=== PATIENT | female | born 1935 | race Caucasian/White ===

== ENCOUNTER 2017-08-13 15:58 | Observation (INO) | payer MEDICARE, BC ==
[~2017-08-13] VITALS: Ht 165.1 cm; Wt 88.5 kg
[~2017-08-13 15:58] MED LIST: ATOR20TA66 PO; CALC1TAB33 PO; DICL18CA PO; DULO60CA45 PO; GABA-530 PO; HYDR-3965 PO; LACT1CAP57 PO; LISI-600 PO; OMEG1CAP54 PO; [UNRECOGNIZED DRUG - OTHER] PO
[2017-08-13 16:49] LABS: BASOPHILS % (AUTO) 0.3 % (0-1); EOSINOPHILS # (AUTO) 0.1 X10'3 (0-0.9); HEMOGLOBIN 12.8 g/dl (12.0-16.0); LYMPHOCYTES # (AUTO) 2.1 X10'3 (1.1-4.8); LYMPHOCYTES % (AUTO) 17.4 % (21-51); MEAN CORPUSCULAR HEMOGLOBIN 31.8 PG (27.0-31.0); MEAN CORPUSCULAR HGB CONC 34.6 % (33.0-36.5); MEAN CORPUSCULAR VOLUME 92.1 FL (78-98); MEAN PLATELET VOLUME 7.3 FL (7.4-10.4); MONOCYTES # (AUTO) 0.8 X10'3 (0-0.9); MONOCYTES % (AUTO) 6.3 % (2-12); PLATELET COUNT 244 X10'3 (140-440); RED BLOOD COUNT 4.01 X10'6 (4.20-5.60); RED CELL DISTRIBUTION WIDTH 14.3 % (11.5-14.5); WHITE BLOOD COUNT 12.1 X10'3 (4.5-11.0)
[2017-08-13 17:11] LABS: ALANINE AMINOTRANSFERASE 24 U/L (12-78); ALBUMIN 3.3 G/DL (3.4-5.0); ALBUMIN/GLOBULIN RATIO 0.9 (1.1-1.5); ALKALINE PHOSPHATASE 89 IU/L (46-116); ANION GAP 14 (8-16); ASPARTATE AMINO TRANSFERASE 19 U/L (10-37); BILIRUBIN,TOTAL 0.4 MG/DL (0.1-1.0); BLOOD UREA NITROGEN 47 MG/DL (7-18); BUN/CREATININE RATIO 24.7 (6.6-38.0); CHLORIDE 96 MMOL/L (99-107); GLUCOSE 98 MG/DL (70-104); POTASSIUM 3.9 MMOL/L (3.5-5.1); SODIUM 134 MMOL/L (135-145); TOTAL CARBON DIOXIDE 23.7 MMOL/L (24-32); TOTAL PROTEIN 6.8 G/DL (6.4-8.2); eGFR 25 ML/MIN
[2017-08-13 18:14] LABS: CLARITY,URINE SLIGHTLY CLOUDY (Clear); COLOR,URINE YELLOW (Yellow); GLUCOSE, URINE NEGATIVE (Neg); KETONES,URINE NEGATIVE (Neg); LEUKOCYTE ESTERASE ,URINE SMALL (Neg); NITRITES, URINE NEGATIVE (Neg); OCCULT BLOOD,URINE NEGATIVE (Neg); PROTEIN,URINE NEGATIVE (Neg); UROBILINOGEN,URINE 0.2 E.U/dL (0.2-1.0)
[2017-08-13 18:19] LABS: UA COLLECTION TYPE CLN CATCH MIDSTREAM
[2017-08-13] MEDS ORDERED: acetaminophen 325mg tablet PO ONE (18:25)
[2017-08-13 18:29] LABS: MUCUS STRANDS MANY /LPF (Neg); SQUAMOUS EPITHELIAL CELL,UR FEW /LPF (FEW); TRANSITIONAL EPI CELLS,URINE FEW /HPF
[2017-08-13 18:30] LABS: COARSE GRANULAR CAST 0-3 /LPF (NEGATIVE)
[2017-08-13 18:31] LABS: BACTERIA,URINE FEW /HPF (Neg); RBC,URINE 0-2 /HPF (0-2); WBC,URINE 0-4 /HPF (0-4)
[2017-08-13] MEDS ORDERED: normal saline 1000ML IV soln IVB ONE (18:40)
[2017-08-13] MEDS ORDERED: PROP40TA72 PO (20:03)
[2017-08-13] MEDS ORDERED: DICLOFENAC 1% GEL TOP (20:03)
[2017-08-13] MEDS ORDERED: PRIMADONE (20:03)
[2017-08-13] MEDS ORDERED: DICL18CA PO (20:04)
[2017-08-13] MEDS ORDERED: acetaminophen 325mg tablet PO PRN (20:55)
[2017-08-13] MEDS ORDERED: magnesium hydroxide 30ml (MOM) UD suspension PO PRN (20:55)
[2017-08-13] MEDS ORDERED: mag hydrox/Alum hydrox/simeth 30ml oral suspension PO PRN (20:55)
[2017-08-13] MEDS ORDERED: ondansetron/PF 4mg/2ml inj IV PRN (20:55)
[2017-08-13 23:00] VITALS: BP 142/61
[2017-08-13 23:07] VITALS: BP_SYST 124; BP_SYST 131; BP_SYST 142; BP_DIAS 49; BP_DIAS 55; BP_DIAS 61
[2017-08-14] MEDS: lisinopril 20mg tablet PO SCH ×3 (00:08→20:53)
[2017-08-14] MEDS: normal saline 1000ml 1,000 ML IV SCH ×3 (00:09→20:41)
[2017-08-14 03:37] VITALS: BP 134/58
[2017-08-14 05:44] LABS: BASOPHILS % (AUTO) 0.4 % (0-1); EOSINOPHILS # (AUTO) 0.1 X10'3 (0-0.9); EOSINOPHILS % (AUTO) 1.6 % (0-6); LYMPHOCYTES # (AUTO) 1.9 X10'3 (1.1-4.8); LYMPHOCYTES % (AUTO) 23.6 % (21-51); MEAN CORPUSCULAR HGB CONC 34.2 % (33.0-36.5); MEAN CORPUSCULAR VOLUME 93.6 FL (78-98); MEAN PLATELET VOLUME 7.5 FL (7.4-10.4); MONOCYTES # (AUTO) 0.5 X10'3 (0-0.9); MONOCYTES % (AUTO) 6.3 % (2-12); NEUTROPHILS # (AUTO) 5.6 X10'3 (1.8-7.7); NEUTROPHILS % (AUTO) 68.1 % (42-75); PLATELET COUNT 186 X10'3 (140-440); RED BLOOD COUNT 3.42 X10'6 (4.20-5.60); RED CELL DISTRIBUTION WIDTH 13.7 % (11.5-14.5); WHITE BLOOD COUNT 8.2 X10'3 (4.5-11.0)
[2017-08-14 06:56] LABS: ALANINE AMINOTRANSFERASE 24 U/L (12-78); ALBUMIN 2.7 G/DL (3.4-5.0); ALBUMIN/GLOBULIN RATIO 0.9 (1.1-1.5); ALKALINE PHOSPHATASE 73 IU/L (46-116); ANION GAP 9 (8-16); ASPARTATE AMINO TRANSFERASE 17 U/L (10-37); BILIRUBIN,TOTAL 0.2 MG/DL (0.1-1.0); BLOOD UREA NITROGEN 43 MG/DL (7-18); BUN/CREATININE RATIO 31.4 (6.6-38.0); CALCIUM 8.8 MG/DL (8.5-10.1); CHLORIDE 103 MMOL/L (99-107); CREATININE 1.37 MG/DL (0.40-0.90); GLUCOSE 106 MG/DL (70-104); SODIUM 137 MMOL/L (135-145); TOTAL CARBON DIOXIDE 25.2 MMOL/L (24-32); TOTAL PROTEIN 5.7 G/DL (6.4-8.2); eGFR 37 ML/MIN
[2017-08-14 07:06] VITALS: BP 120/65
[2017-08-14] MEDS: heparin, porcine 5000 units/ml vial SQ SCH ×2 (07:28→20:54)
[2017-08-14] MEDS: beta-carotene(A) w/C & E + minerals tab PO SCH ×2 (07:29→20:53)
[2017-08-14] MEDS: lactobacillus rhamnosus 10,000 MMU CELLS/CAPSULE PO SCH ×2 (07:29→20:51)
[2017-08-14] MEDS: atorvastatin 20mg tablet PO SCH ×2 (07:29→20:52)
[2017-08-14] MEDS: duloxetine 30mg CAPSULE.DR PO SCH (07:29)
[2017-08-14] MEDS ORDERED: propranolol 40mg tablet PO SCH ×2 (08:00→21:30)
[2017-08-14] MEDS ORDERED: lisinopril 20mg tablet PO SCH (08:00)
[2017-08-14] MEDS: pantoprazole 40mg Tablet.DR PO SCH (10:42)
[2017-08-14] MEDS: propranolol 10mg tablet PO SCH ×2 (10:47→20:52)
[2017-08-14 11:00] VITALS: BP 132/66
[2017-08-14 11:22] VITALS: BP_SYST 132; BP_SYST 133; BP_SYST 149; BP_DIAS 66; BP_DIAS 69
[2017-08-14 20:00] VITALS: BP_SYST 112; BP_SYST 124; BP_SYST 130; BP_DIAS 47; BP_DIAS 53; BP_DIAS 70
[2017-08-14] MEDS ORDERED: gabapentin 100mg capsule PO SCH (21:00)
[2017-08-14 23:30] VITALS: BP 119/71
[2017-08-15] MEDS ORDERED: propranolol 40mg tablet PO SCH (00:30)
[2017-08-15 06:14] LABS: ALANINE AMINOTRANSFERASE 20 U/L (12-78); ALBUMIN 2.7 G/DL (3.4-5.0); ALKALINE PHOSPHATASE 68 IU/L (46-116); ANION GAP 10 (8-16); ASPARTATE AMINO TRANSFERASE 14 U/L (10-37); BILIRUBIN,TOTAL 0.2 MG/DL (0.1-1.0); BLOOD UREA NITROGEN 34 MG/DL (7-18); BUN/CREATININE RATIO 32.1 (6.6-38.0); CALCIUM 8.9 MG/DL (8.5-10.1); CHLORIDE 105 MMOL/L (99-107); CREATININE 1.06 MG/DL (0.40-0.90); GLUCOSE 102 MG/DL (70-104); POTASSIUM 4.1 MMOL/L (3.5-5.1); SODIUM 138 MMOL/L (135-145); TOTAL CARBON DIOXIDE 23.5 MMOL/L (24-32); TOTAL PROTEIN 5.5 G/DL (6.4-8.2); eGFR 50 ML/MIN
[2017-08-15 07:13] VITALS: BP 145/69
[2017-08-15] MEDS: propranolol 10mg tablet PO SCH (08:20)
[2017-08-15] MEDS: pantoprazole 40mg Tablet.DR PO SCH (08:20)
[2017-08-15] MEDS: heparin, porcine 5000 units/ml vial SQ SCH (08:20)
[2017-08-15] MEDS: lactobacillus rhamnosus 10,000 MMU CELLS/CAPSULE PO SCH (08:20)
[2017-08-15] MEDS: atorvastatin 20mg tablet PO SCH (08:20)
[2017-08-15] MEDS: beta-carotene(A) w/C & E + minerals tab PO SCH (08:20)
[2017-08-15] MEDS: lisinopril 20mg tablet PO SCH (08:20)
[2017-08-15] MEDS: duloxetine 30mg CAPSULE.DR PO SCH (08:20)
[2017-08-15] MEDS ORDERED: PANT40TA4 PO (11:26)
[2017-08-15 11:33] VITALS: BP 105/59
== END 2017-08-15 16:00 | disposition home health service (06) ==
LOC: ER 15:58 → ED HOLD 20:53 → SUR 3N 22:36
PROVIDERS: ADMIT Internal Medicine; ATTEND Internal Medicine
DX: E86.0 Dehydration (principal); N17.9 Acute kidney failure, unspecified; R25.1 Tremor, unspecified; R11.10 Vomiting, unspecified; R19.7 Diarrhea, unspecified; E78.00 Pure hypercholesterolemia, unspecified; I10 Essential (primary) hypertension; I48.91 Unspecified atrial fibrillation; M19.90 Unspecified osteoarthritis, unspecified site; G89.29 Other chronic pain; Z91.81 History of falling; Z90.49 Acquired absence of other specified parts of digestive tract
CPT/HCPCS: 36415; 71046; 80053; 81001; 84484; 85025; 87070; 96360; 96361; 96372; 97116; 97162; 97530; 99285; G0378; J1644; J7030

== ENCOUNTER 2018-07-01 18:25 | Inpatient (IN) | payer MEDICARE, BC | END 2018-07-06 13:40 | disposition home or self-care (01) | LOC: ORTHO 4S 07-05 13:02 → ER 18:25 → ORTHO 4S 07-02 00:55 | DX: L02.413 Cutaneous abscess of right upper limb (principal); N39.0 Urinary tract infection, site not specified; N17.9 Acute kidney failure, unspecified ==

== ENCOUNTER 2019-10-31 05:15 | Emergency (ER) | payer MEDICARE, BC ==
[~2019-10-31] VITALS: Ht 167.6 cm; Wt 84.1 kg
[~2019-10-31 05:15] MED LIST changes: -ATOR20TA66 PO; +BACDS PO; +CALC-1215 PO; -CALC1TAB33 PO; +CARB30DR12; -DICL18CA PO; +DICL1KIT14 TOP; +DULO-31 PO; -DULO60CA45 PO; +FISH12002 PO; -HYDR-3965 PO; +HYDR-4383 PO; -LACT1CAP57 PO; -LISI-600 PO; -OMEG1CAP54 PO; +PROP40TA72 PO; -[UNRECOGNIZED DRUG - OTHER] PO
[2019-10-31] MEDS ORDERED: metoprolol tartrate 50mg tablet PO ONE (05:35)
[2019-10-31] MEDS ORDERED: GABA-530 PO (05:36)
[2019-10-31] MEDS ORDERED: PROP40TA72 PO (05:36)
[2019-10-31 06:37] VITALS: BP 122/77
[2019-10-31] MEDS ORDERED: ondansetron 4mg rapidly disintigrating tab PO ONE (06:40)
== END 2019-10-31 07:03 | disposition home or self-care (01) ==
LOC: ER 05:15
DX: I10 Essential (primary) hypertension (principal); R11.0 Nausea; I48.91 Unspecified atrial fibrillation; E78.00 Pure hypercholesterolemia, unspecified; M19.90 Unspecified osteoarthritis, unspecified site; G89.29 Other chronic pain; Z90.49 Acquired absence of other specified parts of digestive tract; Z98.890 Other specified postprocedural states; Z60.2 Problems related to living alone; Z88.0 Allergy status to penicillin; Z79.2 Long term (current) use of antibiotics; Z79.899 Other long term (current) drug therapy
CPT/HCPCS: 99283

== ENCOUNTER 2020-01-12 07:10 | Emergency (ER) | payer MEDICARE, BC ==
[~2020-01-12] VITALS: Ht 165.1 cm; Wt 86.4 kg
[2020-01-12] MEDS ORDERED: morphine 4 MG/ML inj SYRINge IM ONE ×2 (07:35→08:35)
[2020-01-12 10:02] VITALS: BP 164/78
== END 2020-01-12 10:00 | disposition home or self-care (01) ==
LOC: ER 07:10
DX: M54.31 Sciatica, right side (principal); I48.91 Unspecified atrial fibrillation; E78.00 Pure hypercholesterolemia, unspecified; I10 Essential (primary) hypertension; M19.90 Unspecified osteoarthritis, unspecified site; G89.29 Other chronic pain; Z90.49 Acquired absence of other specified parts of digestive tract; Z98.890 Other specified postprocedural states; Z60.2 Problems related to living alone; Z88.0 Allergy status to penicillin; Z79.2 Long term (current) use of antibiotics; Z88.8 Allergy status to other drugs, medicaments and biological substances; Z79.899 Other long term (current) drug therapy
CPT/HCPCS: 72100; 96372; 99284; J2270

== ENCOUNTER 2021-02-17 18:55 | Emergency (ER) | payer MEDICARE, BC ==
[~2021-02-17] VITALS: Ht 165.1 cm; Wt 86.4 kg
[~2021-02-17 18:55] MED LIST changes: -BACDS PO; +SULF1TAB45 PO
[2021-02-17 19:37] VITALS: BP 202/96
[2021-02-17] MEDS ORDERED: HYDROcodone/acetaminophen 5mg/325mg tablet PO ONE (20:35)
== END 2021-02-17 21:45 | disposition home or self-care (01) ==
LOC: ER 18:55
DX: S01.111A Laceration without foreign body of right eyelid and periocular area, initial encounter (principal); S20.211A Contusion of right front wall of thorax, initial encounter; S80.02XA Contusion of left knee, initial encounter; S63.502A Unspecified sprain of left wrist, initial encounter; H57.89 Other specified disorders of eye and adnexa; I48.91 Unspecified atrial fibrillation; E78.00 Pure hypercholesterolemia, unspecified; I10 Essential (primary) hypertension; M19.90 Unspecified osteoarthritis, unspecified site; G89.29 Other chronic pain; Z90.89 Acquired absence of other organs; Z98.890 Other specified postprocedural states; Z60.2 Problems related to living alone; Z88.0 Allergy status to penicillin; Z88.1 Allergy status to other antibiotic agents; Z88.8 Allergy status to other drugs, medicaments and biological substances; Z79.2 Long term (current) use of antibiotics; Z79.899 Other long term (current) drug therapy; W18.30XA Fall on same level, unspecified, initial encounter; Y93.89 Activity, other specified; Y92.89 Other specified places as the place of occurrence of the external cause; Y99.8 Other external cause status
CPT/HCPCS: 12011; 70450; 70486; 72125; 73110; 73564; 99285

== ENCOUNTER 2021-09-06 01:37 | Emergency (ER) | payer MEDICARE, BC ==
[~2021-09-06] VITALS: Ht 165.1 cm; Wt 86.4 kg
[2021-09-06 02:32] VITALS: BP 138/55
[2021-09-06] MEDS ORDERED: acetaminophen 325mg tablet PO ONE (02:35)
== END 2021-09-06 03:25 | disposition home or self-care (01) ==
LOC: ER 01:38
DX: S40.012A Contusion of left shoulder, initial encounter (principal); S80.02XA Contusion of left knee, initial encounter; W18.39XA Other fall on same level, initial encounter; Y93.89 Activity, other specified; Y92.89 Other specified places as the place of occurrence of the external cause; Y99.8 Other external cause status
CPT/HCPCS: 73030; 73564; 99284

== ENCOUNTER 2021-10-10 06:13 | Emergency (ER) | payer MEDICARE, BC ==
[~2021-10-10] VITALS: Ht 165.1 cm; Wt 86.0 kg
[2021-10-10] MEDS ORDERED: celeCOXIB 100mg capsule PO ONE (07:10)
[2021-10-10] MEDS ORDERED: celeCOXIB 100mg capsule PO SCH (07:10)
--- NOTE | 2021-10-10 07:49 | NUR ---
Currently awaiting ordered Celebrex to arriv to unit from pharmacy.
--- NOTE | 2021-10-10 08:45 | NUR ---
Patient assisted to bedside commode. Patient was able to void urine
[2021-10-10] MEDS ORDERED: CELE-193 PO (09:08)
--- NOTE | 2021-10-10 09:40 | NUR ---
RN contacted patients madeline Mitchell via phone. 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
[2021-10-10 10:10] VITALS: BP 135/69
== END 2021-10-10 10:56 | disposition home or self-care (01) ==
LOC: ER 06:13
DX: S80.02XA Contusion of left knee, initial encounter (principal); S80.01XA Contusion of right knee, initial encounter; I48.91 Unspecified atrial fibrillation; E78.00 Pure hypercholesterolemia, unspecified; I10 Essential (primary) hypertension; M19.90 Unspecified osteoarthritis, unspecified site; G89.29 Other chronic pain; Z90.89 Acquired absence of other organs; Z72.89 Other problems related to lifestyle; Z88.8 Allergy status to other drugs, medicaments and biological substances; Z88.0 Allergy status to penicillin; Z88.1 Allergy status to other antibiotic agents; Z79.899 Other long term (current) drug therapy; Z60.2 Problems related to living alone; W01.0XXA Fall on same level from slipping, tripping and stumbling without subsequent striking against object, initial encounter; Y93.89 Activity, other specified; Y92.89 Other specified places as the place of occurrence of the external cause; Y99.8 Other external cause status
CPT/HCPCS: 99283

== ENCOUNTER 2023-02-17 13:36 | Emergency (ER) | payer MEDICARE, BC ==
[~2023-02-17] VITALS: Ht 165.1 cm; Wt 84.1 kg
[~2023-02-17 13:36] MED LIST changes: +AMLO2.5T5 PO; +ATOR40TA72 PO; -DICL1KIT14 TOP; +DICL50TA6 PO; -FISH12002 PO; +LISI20TA28 PO; +PANT40TA54 PO; -SULF1TAB45 PO; +TOPI25TA49 PO
[2023-02-17 14:47] LABS: BASOPHILS # (AUTO) 0.1 X10'3 (0-0.2); BASOPHILS % (AUTO) 0.9 % (0-1); EOSINOPHILS # (AUTO) 0.2 X10'3 (0-0.9); EOSINOPHILS % (AUTO) 3.1 % (0-6); HEMATOCRIT 32.7 % (35.0-45.0); HEMOGLOBIN 10.5 g/dl (12.0-16.0); LYMPHOCYTES # (AUTO) 1.1 X10'3 (1.1-4.8); LYMPHOCYTES % (AUTO) 16.2 % (21-51); MEAN CORPUSCULAR HEMOGLOBIN 29.5 PG (27.0-31.0); MEAN CORPUSCULAR HGB CONC 32.1 g/dL (33.0-36.5); MEAN PLATELET VOLUME 7.8 FL (7.4-10.4); MONOCYTES # (AUTO) 0.6 X10'3 (0-0.9); MONOCYTES % (AUTO) 9.1 % (2-12); NEUTROPHILS # (AUTO) 4.7 X10'3 (1.8-7.7); NEUTROPHILS % (AUTO) 70.7 % (42-75); PLATELET COUNT 212 X10'3 (140-440); RED BLOOD COUNT 3.56 X10'6 (4.20-5.60); RED CELL DISTRIBUTION WIDTH 15.3 % (11.5-14.5); WHITE BLOOD COUNT 6.6 X10'3 (4.5-11.0)
[2023-02-17 15:08] LABS: ALANINE AMINOTRANSFERASE 20 U/L (12-78); ALBUMIN 3.5 G/DL (3.4-5.0); ALKALINE PHOSPHATASE 55 IU/L (46-116); ANION GAP 12 (8-16); ASPARTATE AMINO TRANSFERASE 20 U/L (10-37); BILIRUBIN,TOTAL 0.3 MG/DL (0.1-1.0); BLOOD UREA NITROGEN 62 MG/DL (7-18); BUN/CREATININE RATIO 33.7 (10.0-20.0); CALCIUM 9.3 MG/DL (8.5-10.1); CHLORIDE 106 MMOL/L (99-107); CREATININE 1.84 MG/DL (0.40-0.90); GLUCOSE 111 MG/DL (70-104); LIPASE 68 U/L (16-77); POTASSIUM 5.1 MMOL/L (3.5-5.1); SODIUM 140 MMOL/L (135-145); TOTAL CARBON DIOXIDE 22.3 MMOL/L (24-32); TOTAL PROTEIN 6.9 G/DL (6.4-8.2); eCRCL 1 ML/MIN; eGFR 26 ML/MIN
[2023-02-17] MEDS ORDERED: acetaminophen 325mg tablet PO ONE (16:25)
[2023-02-17 16:41] LABS: BILIRUBIN,URINE NEGATIVE (Neg); CLARITY,URINE CLEAR (Clear); COLOR,URINE YELLOW (Yellow); GLUCOSE, URINE NEGATIVE (Neg); KETONES,URINE NEGATIVE (Neg); LEUKOCYTE ESTERASE ,URINE NEGATIVE (Neg); NITRITES, URINE NEGATIVE (Neg); OCCULT BLOOD,URINE NEGATIVE (Neg); PH,URINE 5.5 (4.8-8.0); PROTEIN,URINE NEGATIVE (Neg); UROBILINOGEN,URINE 0.2 E.U/dL (0.2-1.0)
[2023-02-17 16:46] LABS: UA COLLECTION TYPE CLN CATCH MIDSTREAM
[2023-02-17 16:59] VITALS: TEMP 97.6
[2023-02-17] MEDS ORDERED: ketorolac trometh. 30mg/ml inj. IM ONE (17:00)
[2023-02-17 18:06] VITALS: BP 128/68; PULSE 96; RESP 16; O2SAT 98
== END 2023-02-17 18:01 | disposition home or self-care (01) ==
LOC: ER 13:36
DX: M25.551 Pain in right hip (principal); E78.00 Pure hypercholesterolemia, unspecified; I10 Essential (primary) hypertension; M19.90 Unspecified osteoarthritis, unspecified site; Z88.8 Allergy status to other drugs, medicaments and biological substances; Z88.0 Allergy status to penicillin; Z88.1 Allergy status to other antibiotic agents; Z79.899 Other long term (current) drug therapy; Z98.890 Other specified postprocedural states
CPT/HCPCS: 36415; 74176; 80053; 81003; 83690; 85025; 96372; 99285; J1885